=== PATIENT | female | born 1950 | race Caucasian/White ===

== ENCOUNTER 2022-08-14 10:18 | Outpatient (CLI) | payer MEDICARE | END 2022-08-14 10:19 | disposition home or self-care (01) | LOC: CSHMAMMO 10:18 | PROVIDERS: ATTEND Physician Assistant | DX: Z13.820 Encounter for screening for osteoporosis (principal); M81.0 Age-related osteoporosis without current pathological fracture; Z78.0 Asymptomatic menopausal state | CPT/HCPCS: 77080 ==

== ENCOUNTER 2022-11-07 08:18 | Outpatient (CLI) | payer MEDICARE, OTHER ==
[2022-11-07] MEDS ORDERED: Iopamidol 300 61% 100 ML VIAL FS ONE (09:16)
== END 2022-11-07 08:19 | disposition home or self-care (01) ==
LOC: CSHCT 08:18
PROVIDERS: ATTEND Physician Assistant Medical
DX: K92.1 Melena (principal); R10.31 Right lower quadrant pain
CPT/HCPCS: 74177; 82565